=== PATIENT | male | born 1995 | race Two or more races ===

== ENCOUNTER 2025-04-11 13:12 | Emergency (ER) | payer OTHER, SELFPAY ==
[2025-04-11 13:23] VITALS: BP 141/82; PULSE 74; RESP 19; TEMP 37.2; O2SAT 97; BMI 41.3
--- NOTE | 2025-04-11 13:48 | XR_ITS ---
Examination: Foot, right, 3 views Technique: AP, oblique, lateral views foot, 3 views Date and time of exam: April 11, 2025 1357 hours INDICATIONS: Laceration to the dorsum of the foot today with foot pain. FINDINGS: No fracture. No opaque foreign body No dislocation Soft tissue swelling dorsum of the foot IMPRESSION: No opaque foreign body
--- NOTE | 2025-04-11 13:49 | PD.EDWOUND ---
ED Wound/Laceration-E/HPI General Chief Complaint: Wound/Laceration Stated Complaint: Laceration with a ax to his right foot Time Seen by Provider: 04/11/25 13:48 Arrival date/time: 04/11/25 13:12 RME / HPI RME / HPI narrative: 29-year-old male patient with no significant past medical history, came in for evaluation regarding right foot injury. Patient was getting wounds, and accidentally axed the foot sustaining punctured wound with bleeding. Patient complains of pain with ambulation. Denies any other injury denies vaccination is unknown. Related Data Previous Rx's ?Medication ?Instructions ?Recorded cephalexin 500 mg capsule 500 mg PO TID 7 days #21 caps 04/11/25 ibuprofen 800 mg tablet 800 mg PO TID PRN pain #30 tabs 04/11/25 Allergies Allergy/AdvReac Type Severity Reaction Status Date / Time No Known Allergies Allergy Verified 04/11/25 13:16 Review of Systems Review of Systems Narrative Review of Systems: Review of system reviewed and within normal limits except mentioned in HPI ED Exam Narrative Physical exam: VITAL SIGNS: Reviewed. GENERAL APPEARANCE: Alert and interactive, follows commands, no acute distress, HEAD AND FACE: Non-traumatic. ENT: PERRL, pink conjunctivitis, eyelid no trauma, Mucous membrane moist. NECK: Supple, nontender, no nuchal rigidity. CHEST: No tenderness, no crepitus, no paradoxical movement, no retractions. LUNGS: Clear, well ventilated, symmetric, no rales, no wheezing, no ronchi, no stridor, good breath sounds bilaterally. HEART: Regular rate, regular rhythm, no murmur, no gallops. ABDOMEN: Soft, positive bowel sounds, nondistended, no guarding, nontender, no rebound, no masses, RECTAL: Deferred. GENITAL: Deferred. NEUROLOGICAL: Gross motor function intact sensory function intact, Appropriate for age. MUSCULOSKELETAL: low back nontender, full range of motion. EXTREMITIES: Puncture wound noted on the right dorsal aspect of foot, full range of motion. Distal neurovascular status intact right foot SKIN: Color pink, dry, no rash, no lacerations, no abrasions, no contusions. LYMPHATICS: Deferred. Course Quality Measures none Orders Category Date Time Status XR foot comp RT min 3V Stat Exams 04/11/25 13:48 Completed Ibuprofen Tab [Motrin Tab] Med 04/11/25 13:48 Discontinued 800 mg PO X1 ONE TET,DIP/PERT AC (Adult)-Tdap [Boostrix Adult (Tdap) Med 04/11/25 13:48 Discontinued Vacc] 0.5 ml IMI .ONCE ONE Vital Signs Vital signs: Vital Signs Temperature 99.0 F 04/11/25 13:23 Pulse Rate 74 04/11/25 13:23 Respiratory Rate 19 04/11/25 13:23 Blood Pressure 141/82 H 04/11/25 13:23 Pulse Oximetry (%) 97 04/11/25 13:23 Oxygen Delivery Method Room Air 04/11/25 13:23 Wound / Laceration MDM Narrative MDM Narrative:: 29-year-old male patient with no significant past medical history, came in for evaluation regarding right foot injury. Patient was getting wounds, and accidentally axed the foot sustaining punctured wound with bleeding. Patient complains of pain with ambulation. Denies any other injury denies vaccination is unknown. X-ray of the foot came back unremarkable. Repair and suturing is not needed at this time, I cleaned the wound, there is no active bleeding noted. Patient appears nontoxic and hemodynamically stable .Decision to discharge the patient. The patient/family was given an opportunity to ask questions and understood their discharge instructions. Discharge instructions specifically included follow up provider and time frame, current and/or new medications and possible side effects, indications for sooner follow up or return to the emergency department, and the expected course of current diagnosis. Patient reports feeling better as well and giving evidence of significant clinical improvement, I believe patient is now a candidate for discharge. Patient data External records reviewed:: None Clinical information provided by:: patient Social determinants that could affect healthcare access:: none Patient has the following chronic illnesses:: None How is presenting disease/condition affected by chronic disease/condition?: no chronic disease Evaluation data The following diagnostics were reviewed and interpreted by me:: radiology exam(s) Lab and/or radiology exams considered but not ordered:: None Interpretation Summary: See results [facility] Medications / Prescriptions Medications or Prescriptions considered but not ordered:: None Medication administrations:: Medication Administration History Discontinued Medications Diphtheria/Tetanus/Acell Pertussis (Diphth,Pertuss(Acell),Tet Vac 0.5 Ml Syr- Adult) 0.5 ml IMi .ONCE ONE Stop: 04/11/25 13:49 Last Admin: 04/11/25 16:42 Dose: 0.5 ml Documented By: Ibuprofen (Ibuprofen Tab 400 Mg Tablet) 800 mg PO X1 ONE Stop: 04/11/25 13:49 Last Admin: 04/11/25 16:37 Dose: 800 mg Documented By: Motrin and Boostrix Consultations Consultation(s) initiated? (list below): No Diagnosis Wound Differential Diagnosis: laceration, abrasion and avulsion of skin Most likely diagnosis given after review of the tests above:: Puncture wound foot dorsal Admission Indicated Admission indicated?: not indicated Admission Request Was there a request for admission?: No Disposition Plan Disposition Plan: Discharge Discharge Attestation Discharge Attestation: The patient and all family members were given an opportunity to ask questions and understood the discharge instructions. Discharge instructions specifically effects, indications for sooner follow up or return to the emergency department, and the expected course of current diagnosis. Patient condition: Stable Discharge Plan Plan Patient Disposition: HOME (Self Care) Discharge Disposition comment: Stable Prescriptions/Referrals Prescriptions/Med Rec: New cephalexin 500 mg capsule 500 mg PO TID 7 Days Qty: 21 0RF ibuprofen 800 mg tablet 800 mg PO TID PRN (Reason: pain) Qty: 30 0RF Referrals: No Primary/Family,Physician [Primary Care Provider] - In 1 week Problem List Clinical Impression: Puncture wound of foot Patient/Caregiver Discharge Instructions Discharge Activity: activity as tolerated Education Materials: ED Puncture Wound (General) Additional Instructions: Thank you for the opportunity for serving you today. You are stable for discharged . You are advised to: Follow-up with your PCP in 1 to 2 days Return to ED for worsening of symptoms Increase oral fluids Take medication as prescribed Daily dressing with Neosporin as needed Print Language: [place] Stand Alone Forms: Luisa Award Info., Patient Portal Info Letter PA/MARIANNE Supervising Physician MARGARITA/MARIANNE Supervising Physician: MD Ozzie
[2025-04-11] MEDS: IBUPROFEN TAB 400 MG TABLET 800 MG PO (16:37)
[2025-04-11] MEDS: DIPHTH,PERTUSS(ACELL),TET VAC 0.5 ML SYR- ADULT IMi (16:42)
== END 2025-04-11 17:00 | disposition home or self-care (01) ==
PROVIDERS: Emergency Provider Emergency Medicine
DX: S91.331A Puncture wound without foreign body, right foot, initial encounter (principal); W27.0XXA Contact with workbench tool, initial encounter; Y93.89 Activity, other specified; Y92.89 Other specified places as the place of occurrence of the external cause; Y99.0 Civilian activity done for income or pay; Z23 Encounter for immunization
CPT/HCPCS: 73630; 90471; 90715; 99283; A9270